=== PATIENT | male | born 1980 | race Caucasian/White ===

== ENCOUNTER → 2021-02-21 | Outpatient (CLI) | payer OTHER ==
--- NOTE | 2021-02-21 10:22 | RAD ---
EXAM: Pelvic sonogram. HISTORY: Bilateral inguinal pain and history of prior inguinal hernia repair. TECHNIQUE: Sonographic imaging of both inguinal regions was performed. COMPARISON: None. FINDINGS: No inguinal hernia is seen. There is no mass or fluid collection. There are patent inguinal vessels. IMPRESSION: Unremarkable bilateral inguinal sonogram. Cross sectional imaging can be considered if th ere is concern for sonographically occult hernia. Electronically signed by: Kaity Gore MD (02/21/2021 10:20 AM) [id number]
== END ==
LOC: US 09:36 → EDBD 09:36
PROVIDERS: ATTEND Family Medicine
DX: R10.30 Lower abdominal pain, unspecified (principal)
CPT/HCPCS: 76856